=== PATIENT | male | born 1940 | race Caucasian/White ===

== ENCOUNTER → 2023-09-06 11:53 | Outpatient (REF) | payer OTHER, SELFPAY ==
[2023-09-06 13:19] LABS: % Basophils 0.3 % (0-2); % Eosinophils 0.9 % (0-6); % Immature Granulocytes 0.2 % (0-0.5); % Lymphocytes 5.5 % (20.5-51.1); % Monocytes 5.2 % (1.7-9.3); % Neutrophils 87.9 % (42.2-75.2); Absolute Eosinophils 0.1 10^3/uL (0-0.7); Absolute Lymphocytes 0.5 10^3/uL (1.2-3.4); Absolute Monocytes 0.5 10^3/uL (0.1-0.6); Absolute Neutrophils 7.5 10^3/uL (1.4-6.5); Hematocrit 24.7 % (39.0-52.0); Hemoglobin 7.6 g/dL (13.0-18.0); Mean Corp Hgb Conc. 30.8 g/dL (33.0-37.0); Mean Corpuscular Hgb 29.3 pg (27.0-31.0); Mean Corpuscular Volume 95.4 fL (80.0-94.0); Nucleated Red Blood Cells % 0 % (-); Platelet Count 124 10^3/uL (130-400); Red Blood Cell Count 2.59 10^6/uL (4.70-6.10); Red Cell Dist. Width 13.4 % (11.5-14.5); White Blood Cell Count 8.6 10^3/uL (4.8-10.8)
[2023-09-06 13:47] LABS: ALT (SGPT) 61 U/L (0-50); AST (SGOT) 46 U/L (17-59); Albumin 3.1 g/dl (3.5-5.0); Alkaline Phosphatase 202 U/L (38-126); Blood Urea Nitrogen 45 mg/dl (9-20); Calcium 8.5 mg/dl (8.4-10.2); Carbon Dioxide 24 mmol/L (22-30); Chloride 108 mmol/L (98-107); Glucose 350 mg/dl (70-99); Potassium 4.9 mmol/L (3.5-5.1); Sodium 137 mmol/L (135-145); Total Bilirubin 0.5 mg/dl (0.2-1.3); Total Protein 5.3 g/dl (6.3-8.2); eGFR 27.32
== END ==
LOC: OLABP 11:53
PROVIDERS: ATTENDING PHYSICIAN Family Medicine
DX: J81.0 Acute pulmonary edema (principal); N13.2 Hydronephrosis with renal and ureteral calculous obstruction; E87.5 Hyperkalemia; E87.1 Hypo-osmolality and hyponatremia; R60.0 Localized edema; N17.9 Acute kidney failure, unspecified; I48.0 Paroxysmal atrial fibrillation; K21.9 Gastro-esophageal reflux disease without esophagitis; E78.5 Hyperlipidemia, unspecified; I11.0 Hypertensive heart disease with heart failure; E03.9 Hypothyroidism, unspecified; K64.9 Unspecified hemorrhoids; Z85.038 Personal history of other malignant neoplasm of large intestine; E66.9 Obesity, unspecified; R35.89 Other polyuria; E55.9 Vitamin D deficiency, unspecified
CPT/HCPCS: 36415; 80053; 85025

== ENCOUNTER → 2023-09-08 11:12 | Outpatient (REF) | payer OTHER, SELFPAY ==
[2023-09-08 12:04] LABS: % Basophils 0.6 % (0-2); % Eosinophils 2.3 % (0-6); % Immature Granulocytes 0.3 % (0-0.5); % Lymphocytes 8.8 % (20.5-51.1); % Monocytes 7.4 % (1.7-9.3); % Neutrophils 80.6 % (42.2-75.2); Absolute Eosinophils 0.2 10^3/uL (0-0.7); Absolute Lymphocytes 0.6 10^3/uL (1.2-3.4); Absolute Monocytes 0.5 10^3/uL (0.1-0.6); Absolute Neutrophils 5.9 10^3/uL (1.4-6.5); Hematocrit 26.2 % (39.0-52.0); Hemoglobin 7.8 g/dL (13.0-18.0); Mean Corp Hgb Conc. 29.8 g/dL (33.0-37.0); Mean Corpuscular Hgb 28.4 pg (27.0-31.0); Mean Corpuscular Volume 95.3 fL (80.0-94.0); Mean Platelet Volume 11.1 fL (7.4-10.4); Nucleated Red Blood Cells % 0 % (-); Platelet Count 116 10^3/uL (130-400); Red Blood Cell Count 2.75 10^6/uL (4.70-6.10); Red Cell Dist. Width 13.2 % (11.5-14.5); White Blood Cell Count 7.3 10^3/uL (4.8-10.8)
== END ==
LOC: OLABP 11:12
PROVIDERS: ATTENDING PHYSICIAN Family Medicine
DX: I50.9 Heart failure, unspecified (principal); J81.0 Acute pulmonary edema; N13.2 Hydronephrosis with renal and ureteral calculous obstruction; E87.1 Hypo-osmolality and hyponatremia; R60.0 Localized edema; K64.9 Unspecified hemorrhoids; Z85.038 Personal history of other malignant neoplasm of large intestine; E66.9 Obesity, unspecified; I48.0 Paroxysmal atrial fibrillation; K21.9 Gastro-esophageal reflux disease without esophagitis; E78.5 Hyperlipidemia, unspecified; I11.0 Hypertensive heart disease with heart failure; E03.9 Hypothyroidism, unspecified
CPT/HCPCS: 36415; 85025

== ENCOUNTER 2023-09-15 21:13 | Inpatient (IN) | payer OTHER, SELFPAY ==
[2023-09-15 15:10] VITALS: BMI 29.2
--- NOTE | 2023-09-15 15:36 | ED.GENMED ---
History of Present Illness
General
Chief Complaint: Failure to Thrive
Source: patient, records, spouse and family
Exam Limitations: none
Time Seen by Provider: 09/15/23 15:36
Nursing documentation reviewed up to this point in time: agreed with
Travel History
Have you had any contact with someone who has COVID-19?: No
Do you have any symptoms of coronavirus? Fever > 100 degrees, chills, cough, shortness of breath, sore throat, loss of taste or smell, muscle aches, or headache?: No
History of Present Illness
History of Present Illness:
83-year-old male presents emerged from complaining of weakness, altered mental status. Recent discharge after hospital stay at [facility]. He was hospitalized for CHF, hyperkalemia and renal failure. He was found to have liver
metastasis of his colon cancer. His renal failure required dialysis while at [place]. He was discharged on 09/09/2023. He was then sent to [facility] rehab.
Past History
Past History
ED Past Medical History: Arrthythmia (paroxysmal atrial fibrillation), CAD, Cancer (colon, s/p oral chemo), CHF, GERD, HTN, Hypercholesterolemia, IDDM, Hypothyroidism and Other (Kidney stones)
ED Past Surgical History: Cardiac (CABG), Urological and Other (partial colectomy '03)
Social History
Tobacco: Non-smoker
Alcohol: None
Drug: None
Personal:
Living: with family
Employment: Retired
Family History
Family History: Other (Noncontributory)
Review of Systems
Review of Systems
Allergies reviewed?: Yes
All Other Systems: Not applicable
Constitutional: Reports no symptoms
EENT: Reports no symptoms
Respiratory: Reports no symptoms
Cardiac: Reports no symptoms
ABD/GI: Reports no symptoms
: Reports no symptoms
Musculoskeletal: Reports edema
Skin: Reports no symptoms
Neurological: Reports other (Confusion, weakness)
Endocrine: Reports no symptoms
Hematologic/Lymphatic: Reports no symptoms
Psychiatric: Reports no symptoms
Phy Exam
Physical Exam
Physical Exam:
Physical Exam
General: Chronic ill appearance, afebrile
Neck: supple. no meningeal signs. normal posterior pharynx
Heart: s1/s2 regular rate and rhythm, no murmur. equal radial
pulses.
HEENT: Pupils equal round reactive to light, EOMI
Lungs: no acute respiratory distress. clear bilaterally
Abdomen: normal bowel sounds. not tender. no CVAT
Neuro: alert and oriented to person and place. no focal neurological deficits cranial nerves II through XII intact
Skin: no rash
Psychiatric: well kept. interactive and cooperative
Extremities: Bilateral tibial edema. no calf tenderness. negative homans. good distal pulses
Course
Orders/Labs/Results
Orders:
Orders
09/15/23 Dinner
Clear Liquid
At Your Request: Full Participation
09/15/23 15:20
CMP [Comprehensive Metabolic Panel] Urgent
Complete Blood Count/With Diff Urgent
09/15/23 15:49
CT Head W/o Iv Contrast Urgent
Comment:
Reason For Exam: weakness, confusion, altered mental status
09/15/23 15:50
Urinalysis Reflex To Culture Urgent
CR Chest - 2 Views Urgent
Comment:
Reason For Exam: short of breath, chf
09/15/23 15:54
Electrocardiogram (*1) Stat
Reason for Study: Shortness of Breath
Electrocardiogram (*1) Urgent
EKG- Treatment ONCE
09/15/23 16:12
Type+Screen Urgent
09/15/23 18:09
Vital Signs- Treatment ONCE
Frequency: q30m
09/15/23 19:51
NT-proBNP Urgent
Troponin I Urgent
09/15/23 20:06
Admit/Transfer Patient As Directed
Co-Sign Provider:
Level of Care: Inpatient admission
Assign to:: Medical/Surgical
Physician / Group: [facility]/Hospitalist
Diagnosis: Metastatic Colon Cancer
Reason for Hospitalization: Metastatic Colon Cancer
Profound Weakness
Expected length of stay greater than two midnights?: Yes
ELOS- Estimated Length of Stay in days: 4
I certify the patient meets the requirements for IP care: Yes
09/15/23 20:11
Code Status As Directed
Resuscitation Status: Do not resuscitate
Reached after discussion with pt or family/Healthcare POA: Yes
Decision communicated with: son, dgt,
09/15/23 20:12
DNR Bracelet Application ONCE
09/15/23 22:00
Flush (0.9% Sodium Chloride) [Flush (Nss)] See Dose Instructions IV PER PROTOCOL
09/15/23 22:39
Bisacodyl [Dulcolax] 10 mg RECTAL [id number] PRN
Docusate W/Senna [Senokot-S] 1 tablet PO BIDPRN PRN
Morphine Sulfate 1 mg IV Q2HPRN PRN
Polyethylene Glycol Powder [Miralax] 17 grams PO DAILYPRN PRN
09/15/23 22:39
Blood Bank Products [* Blood Bank Products] Routine
Blood Bank Products: *Packed RBC Leuko(PRBC's)
Quantity: 1
Transfuse Today: Yes
Reason: Anemia
Abdomen/Pelvis wo Contrast CT [CT Abd/pelvis Wo Iv Cont] Routine
Comment: no oral or IV contrast
Reason For Exam: colon cancer
Accucheck [Bedside Glucose Monitoring] As Directed
Frequency: Q6H
Activity As Directed
Activity Level: Bedrest
Pneumatic Compression Sleeves As Directed
Type: Knee high
Vital Signs As Directed
Frequency: Per unit guidelines
O2 Therapy [RESP] Routine
Nasal Cannula Liter Flow: 2 LPM
Titrate/Wean O2 to maintain O2 sat greater than (%): 88
DX Deep Vein Thrombosis Video Routine
09/16/23 06:00
Basic Metabolic Panel IN AM
Complete Blood Count/No Diff IN AM
Troponin I IN AM
09/16/23 07:30
Insulin Aspart Corrective Mod [Novolog Flexpen-Moderate Resistance] See Protocol SC AC
09/16/23 08:00
Finasteride [Proscar] 5 mg PO DAILY
NIFEdipine EXTENDED RELEASE [Procardia Xl (Extended Release)] 30 mg PO DAILY
Tamsulosin [Flomax] 0.4 mg PO DAILY
Abnormal Lab Results
09/15/23 09/15/23 09/15/23
15:20 16:12 19:51
RBC 2.64 L 10^6/uL
(4.70-6.10)
Hgb 7.6 L g/dL
(13.0-18.0)
Hct 24.1 L %
(39.0-52.0)
MCHC 31.5 L g/dL
(33.0-37.0)
MPV 11.7 H fL
(7.4-10.4)
Absolute Neuts (auto) 7.4 H 10^3/uL
(1.4-6.5)
Absolute Lymphs (auto) 0.6 L 10^3/uL
(1.2-3.4)
Neutrophils % 84.7 H %
(42.2-75.2)
Lymphocytes % 6.4 L %
(20.5-51.1)
Carbon Dioxide 20 L mmol/L
(22-30)
BUN 57 H mg/dl
(9-20)
Creatinine 2.0 H mg/dL
(0.7-1.3)
Glucose 232 H mg/dl
(70-99)
AST 67 H U/L
(17-59)
ALT 71 H U/L
(0-50)
Alkaline Phosphatase 238 H U/L
(38-126)
Troponin I 1.540 H* ng/ml
Total Protein 5.7 L g/dl
(6.3-8.2)
Albumin 3.2 L g/dl
(3.5-5.0)
Crossmatch IS Only See Detail
09/15/23 15:20
09/15/23 15:20
Vital Signs
Initial and Last Documented VS:
Initial Vital Signs
Temp Pulse Resp Pulse Ox
98.0 F 93 16 96
09/15/23 15:10 09/15/23 15:10 09/15/23 15:10 09/15/23 15:10
Last Documented Vital Signs
Temp Pulse Resp BP Pulse Ox
97.8 F 98 18 125/60 96
09/15/23 23:45 09/15/23 23:45 09/15/23 23:45 09/15/23 23:45 09/15/23 23:18
MDM/Problems Addressed
Differential Diagnosis Includes:
Anemia, CHF exacerbation
MDM/Problems Addressed:
83-year-old male with CHF exacerbation, anemia, troponin elevation, likely type II. Patient denies chest pain. Admit to hospitalist.
Chronic conditions affecting care: CAD
Acute Exacerbation and/or Progression of Chronic Illness: CAD
*Pulse Oximetry
Patient hypoxic: no
*EKG
Interpreted by ED Provider?: Yes
EKG Intrepretation Date: 09/15/23
EKG Intrepretation Time: 16:06
Interpretation: abnormal
Comparison EKG: changes noted
Heart Rate: 89
Rate: normal
Rhythm: sinus
[place]: normal axis
Interval: first degree heart block
QRS Pattern: normal QRS
Ischemia: non-specific ST changes
*Back Digger Operator Interpretation
Rate: normal
Interpretation: normal
Heart Rate: 88
Rhythm: sinus
*Critical Care Note
Total Time (30-74mins, 75-104mins- exclusive of procedures): Not Applicable
Data Reviewed
Review of Other/Old Records Reveals: Labs
Prescriptions/Medications Considered But Not Given:
heparin not indicated as pt takes apixaban
ED Attending Note
-
Portions of this chart may have been created with voice recognition software.� Occasional wrong word or��sound alike� substitutions may have occurred due to the inherent limitations of voice recognition software.
Discharge Plan
Departure
Patient Disposition: Admit
Date of Disposition: 09/15/23
Time of Disposition: 18:09
Admit to: Telemetry
Presentation/result/management discussed w/ accepting MD/DO: Hospitalist
Condition: Fair
Discharge Problem:
Acute exacerbation of CHF (congestive heart failure), Elevated troponin I level, Anemia
Interventions
Interventions:
*Risk Screen - Suicide Last Done: 09/15/23 15:10
*General Assessment Last Done: 09/15/23 15:10
*Neglect/Abuse Screening Last Done: 09/15/23 15:10
ED- Fall Risk Assessment Last Done: 09/15/23 22:51
*ED COVID-19 Vaccine History Last Done: 09/15/23 15:10
*Nursing Disposition Last Done: 09/15/23 22:51
Discharge Date and Time
Discharge Date/Time: 09/15/23 22:51
[2023-09-15 15:42] LABS: % Basophils 0.5 % (0-2); % Immature Granulocytes 0.5 % (0-0.5); % Lymphocytes 6.4 % (20.5-51.1); % Monocytes 6.9 % (1.7-9.3); % Neutrophils 84.7 % (42.2-75.2); Absolute Eosinophils 0.1 10^3/uL (0-0.7); Absolute Lymphocytes 0.6 10^3/uL (1.2-3.4); Absolute Monocytes 0.6 10^3/uL (0.1-0.6); Absolute Neutrophils 7.4 10^3/uL (1.4-6.5); Hematocrit 24.1 % (39.0-52.0); Hemoglobin 7.6 g/dL (13.0-18.0); Mean Corp Hgb Conc. 31.5 g/dL (33.0-37.0); Mean Corpuscular Hgb 28.8 pg (27.0-31.0); Mean Corpuscular Volume 91.3 fL (80.0-94.0); Mean Platelet Volume 11.7 fL (7.4-10.4); Nucleated Red Blood Cells % 0 % (-); Platelet Count 130 10^3/uL (130-400); Red Blood Cell Count 2.64 10^6/uL (4.70-6.10); Red Cell Dist. Width 13.1 % (11.5-14.5); White Blood Cell Count 8.7 10^3/uL (4.8-10.8)
[2023-09-15 16:00] LABS: ALT (SGPT) 71 U/L (0-50); AST (SGOT) 67 U/L (17-59); Albumin 3.2 g/dl (3.5-5.0); Alkaline Phosphatase 238 U/L (38-126); Blood Urea Nitrogen 57 mg/dl (9-20); Calcium 8.7 mg/dl (8.4-10.2); Carbon Dioxide 20 mmol/L (22-30); Chloride 107 mmol/L (98-107); Estimated Creatinine Clearance 27 ml/min; Glucose 232 mg/dl (70-99); Potassium 4.4 mmol/L (3.5-5.1); Sodium 136 mmol/L (135-145); Total Bilirubin 0.5 mg/dl (0.2-1.3); Total Protein 5.7 g/dl (6.3-8.2)
[2023-09-15 18:39] VITALS: BP 121/57
--- NOTE | 2023-09-15 20:16 | W.PN.HOSP.TC ---
Today's Communication/Plan
-
CT scan abd/pelvis
Assessment / Plan
Assessment / Plan
overwhelming weakness
most likely, based on history, tumor burden
Metastatic Colon Cancer
as per dgt, extensive involvement of liver, peritoneal disease. CEA 40
multifactorial anemia
Paroxysmal Atrial Fibrillation
CKD
P:CT scan abd/pelvis
transfuse 1 unit PRBC
potential Oncology consult in AM
Morphine for pain
DNR
see dictated note
Anticipated Discharge: > 48 hours
Subjective/Interval History
-
Date of Service: September 15, 2023
profoundly weak
Objective Data
-
Labs:
Laboratory Results
09/15/23
15:20
WBC 8.7
Hgb 7.6 L
Hct 24.1 L
Plt Count 130
Sodium 136
Potassium 4.4
Chloride 107
Carbon Dioxide 20 L
BUN 57 H
Creatinine 2.0 H
Glucose 232 H
Calcium 8.7
Total Bilirubin 0.5
AST 67 H
ALT 71 H
Alkaline Phosphatase 238 H
Vital Signs:
Vital Signs
Temp Pulse Resp BP Pulse Ox
97.5 F 99 16 121/57 93
09/15/23 18:39 09/15/23 18:39 09/15/23 15:10 09/15/23 18:39 09/15/23 18:39
Review of Systems
-
History Source: Family (dgt and in room, son (ENT physician) on phone)
Constitutional: Denies Fever
EENT: Reports No Symptoms Reported
Respiratory: Denies Trouble Breathing
Cardiac: Denies Chest Pain
Abdomen/GI: Reports No Symptoms
Musculoskeletal: Reports Muscle Weakness
Neuro: Reports Weakness
Physical Exam
-
General: Well Developed, Well Nourished and Appears Chronically Ill
HEENT: Normocephalic, Atraumatic and Moist Mucous Membranes
Respiratory: Clear to Auscultation (on shallow respirations)
Cardiac: Regular Rhythm and S1/S2
GI: Soft, Nontender and Nondistended; Negative Normal Bowel Sounds (hypoactive)
Musculoskeletal: No Clubbing, No Cyanosis and No Edema
Skin: Warm and Dry
Neuro: Awake
[2023-09-15 20:27] LABS: NT-proBNP > 27000 pg/ml
[2023-09-15 23:15] LABS: Glucose - Point of Care 278 mg/dl (70-99)
[2023-09-15 23:18] VITALS: BP 124/63; BMI 28.1
[2023-09-15 23:45] VITALS: BP 125/60
--- NOTE | 2023-09-15 23:56 | PTCARENOTE ---
Addendum entered by Ismael Cardenas RN 09/16/23 03:08:
1 unit of RBC was transfused and tolerated. Pt has been confused and wants to leave, having a hard time to understand why he is in the hospital. Medsiter monitor was placed for safety.
Original Note:
Pt admitted to . VSS, afebrile, AAOx1, confused, forgetful, flat affect and withdraw. Irregular HR sounds. +1 BLLE edema. Lung sounds are diminished at the bases, shallow breathing, SaO2 95% RA. Abd round. Incontinence of urine and bowel. #25
condom cath placed. Bed alarm placed. pt appear comfortable in bed and call gonzáles within reach.
[2023-09-16 00:05] VITALS: BP 127/60
[2023-09-16] MEDS: MORPHINE SULFATE 1 MG IV ×6 (01:46→21:31)
[2023-09-16 03:07] VITALS: BP 121/64
[2023-09-16 04:00] VITALS: BMI 28.0
[2023-09-16 04:43] LABS: Urine Albumin 2+ (Neg - Trace); Urine Bilirubin 1+ (Negative); Urine Color Brown; Urine Glucose 1+ (Negative); Urine Ketone Trace (Negative); Urine Leukocyte 1+ (Negative); Urine Nitrite Negative (Negative); Urine Occult Blood 4+ (Negative); Urine Urobilinogen Negative (Neg - 1+)
[2023-09-16 04:45] LABS: Urine Character Cloudy (Clear)
[2023-09-16 05:22] LABS: Urine Amorphous Seen; Urine Red Blood Cell >100 /HPF (0-2); Urine Squamous Cell >30 /LPF (Few)
[2023-09-16 05:27] LABS: Urine Bacteria Many (Negative)
[2023-09-16 06:28] LABS: Hematocrit 28.4 % (39.0-52.0); Hemoglobin 9.1 g/dL (13.0-18.0); Mean Corpuscular Volume 90.4 fL (80.0-94.0); Mean Platelet Volume 11.4 fL (7.4-10.4); Platelet Count 133 10^3/uL (130-400); Red Blood Cell Count 3.14 10^6/uL (4.70-6.10); Red Cell Dist. Width 13.1 % (11.5-14.5); White Blood Cell Count 8.9 10^3/uL (4.8-10.8)
[2023-09-16 06:55] LABS: Blood Urea Nitrogen 60 mg/dl (9-20); Calcium 8.7 mg/dl (8.4-10.2); Carbon Dioxide 16 mmol/L (22-30); Chloride 107 mmol/L (98-107); Estimated Creatinine Clearance 24 ml/min; Glucose 290 mg/dl (70-99); Sodium 135 mmol/L (135-145); eGFR 27.32
[2023-09-16 07:32] LABS: Glucose - Point of Care 316 mg/dl (70-99)
[2023-09-16 07:42] VITALS: BMI 28.0
[2023-09-16 07:57] VITALS: BP 117/64
[2023-09-16] MEDS: NOVOLOG FLEXPEN-MODERATE RESISTANCE 7 UNITS SC ×2 (09:15→12:20)
[2023-09-16] MEDS: FLOMAX 0.400000000000000022 MG PO (09:16)
[2023-09-16] MEDS: PROTONIX IV 40 MG IV (09:17)
[2023-09-16] MEDS: NSS (PRESERVATIVE FREE) 10 ML IV (09:17)
[2023-09-16] MEDS: PROSCAR 5 MG PO (09:18)
[2023-09-16] MEDS: PROCARDIA XL (EXTENDED RELEASE) 30 MG PO (09:18)
[2023-09-16 11:39] LABS: Glucose - Point of Care 310 mg/dl (70-99)
--- NOTE | 2023-09-16 12:44 | W.PN.HOSP.TC ---
Addendum entered and electronically signed by Anthony Live MD 09/16/23 12:58:
glu remains elevated, will resume long acting insulin, even though pt not eating, will resume at low amount
Original Note:
Today's Communication/Plan
-
IVF
Oncology consult
Assessment / Plan
Assessment / Plan
overwhelming weakness
most likely, based on history, tumor burden
Metastatic Colon Cancer
as per dgt, extensive involvement of liver, peritoneal disease. CEA [address] scan of abd and pelvis: 1).Evaluation for malignancy/metastasis is limited by the lack of intravenous and oral contrast
2). There are greater than 20 hepatic metastasis measuring up to 2 cm
3). There is a small volume perihepatic ascites and small volume ascites in both paracolic gutters.
4). There are bilateral nonobstructing renal calculi and left double-J ureteral stent
5). There is distal sigmoid anastomosis
6). There are small-moderate bilateral pleural effusions with associated compressive atelectasis at both lung bases
multifactorial anemia
transfused 1 unit, Hgb 7.6-->9.1
Paroxysmal Atrial Fibrillation
as on Eliquis, which has been stopped
CKD
baseline Creat in 01/2020 was 0.7, while at [place] was 4. Received 3 dialysis sessions, Creat dropping into the 2's when dc to [place]. Pt is apparently at his new baseline.
Anorexia
most likely tumor related. By my read, significant bowel distention consistent with diffuse bowel involvement of cancer
P: will start IVF
situation reviewed with family (son, dgt, at bedside) - extensive review of situation, reviewed CT images with dgt, JING Mcfarlane. They would like oncologist input prior to making decision on Palliative Care vs attempted treatment
DNR
Anticipated Discharge: > 48 hours
Subjective/Interval History
-
Date of Service: September 16, 2023
Remains very weak, but slightly more alert this morning compared to time of admission
Objective Data
-
Labs:
Laboratory Results
09/16/23
06:03
WBC 8.9
Hgb 9.1 L
Hct 28.4 L
Plt Count 133
Sodium 135
Potassium 5.0
Chloride 107
Carbon Dioxide 16 L
BUN 60 H
Creatinine 2.3 H
Glucose 290 H
Calcium 8.7
Vital Signs:
Vital Signs
Temp Pulse Resp BP Pulse Ox
97.7 F 92 18 117/64 96
09/16/23 07:57 09/16/23 09:18 09/16/23 07:57 09/16/23 09:18 09/16/23 08:00
I&O
09/15/23 09/16/23 09/17/23
06:59 06:59 06:59
Intake Total 670 / 670
Output Total 150 / 150
Balance 520 / 520
Review of Systems
-
History Source: Family (dgt Maeve, son Calvin and in room)
Constitutional: Denies Fever
EENT: Reports No Symptoms Reported
Respiratory: Denies Trouble Breathing
Cardiac: Denies Chest Pain
Abdomen/GI: Reports No Symptoms
Musculoskeletal: Reports Muscle Weakness
Neuro: Reports Weakness
Physical Exam
-
General: Well Developed, Well Nourished and Appears Chronically Ill
HEENT: Normocephalic, Atraumatic and Moist Mucous Membranes
Respiratory: Clear to Auscultation (on shallow respirations) and Decreased Breath Sounds (noted at both bases)
Cardiac: Regular Rhythm and S1/S2
GI: Soft, Nontender and Nondistended; Negative Normal Bowel Sounds (hypoactive)
Musculoskeletal: No Clubbing, No Cyanosis and No Edema
Skin: Warm and Dry
Neuro: Awake
--- NOTE | 2023-09-16 12:48 | CM ---
Reviewed the chart notes and spoke with the patient's spouse and daughter at the bedside. The patient was recently at [facility] for a week post hospitalization from [facility] and discharged to home with Alexia MOSLEY. The patient's family have been caring
for the patient since discharge, but now the family feels that the patient needs exceed their capabilities to care for the patient. The patient resides with his spouse in a two story home with one step to enter. The mast bedroom is on the first
level. The patient has a rolling walker, but is now not able to walk. [facility] CM continues to be available to patient/family and is monitoring medical plan for needs at discharge.
Plan: Discharge plans will depend on the patient's progress.
[2023-09-16] MEDS: 0.45%NACL 1000 IV ×2 (13:12→21:30)
--- NOTE | 2023-09-16 14:16 | CON.ONC ---
Impression
Impression
83 Yo M with recurrent extensive metastatic colorectal cancer presents to the hospital with extreme fatigue and weakness.
1. Weakness
2. Subacute infarcts on head CT scan
3. Extensive metastatic Colon carcinoma - liver and peritoneal Metastasis
4. Anemia, possibly multifactorial.
5. SHERMAN on CKD
Plan
Plan
Sees Oncologist Dr. Hoff at [place]. Agree with his primary oncologist that patient is not a candidate for systemic chemotherapy. Given his co- morbid conditions, chemotherapy is potentially harmful than beneficial. Family is concerned about
rapid decline in his status within the last one week. Family considers some treatment in anticipation of patient getting better. Patient is Hospice eligible.
Patient History
History of Present Illness
83 Yo M presents to the hospital with extreme weakness, and fatigue for the last 2-3 days, that progressively worsened with new onset confusion yesterday. Patient has a h/o of colorectal cancer s/p bowel resection and chemotherapy in 2017, CEA at
2.5 in remission. He was independent and ambulatory until the most recent hospital visit to [place], where he was treated for acute CHF, Anemia, Atrial Fibrillation and SHERMAN(sr.Cr- 4.0)that required 3 dialysis cycles over a period of 18 days and was
discharged to [facility] for Rehab. During this admission, he had an abdominal CT scan and found to have extensive metastatic disease that spread to peritoneum, retroperitoneum and liver. Patient has established with oncologist at [place],
Luis Eduardo. His previous cancer was treated by the same group, Dr. Mota. The initial goal was to gain the strength back before starting chemotherapy. He was discharged from [facility] on September 09(last Tuesday) and ambulating well in the home with the
help of a walker until 2-3 days ago. (history obtained from mother and step daughter on bed side).
Daughter also reports bowel and bladder incontinence over the last 2-3 days.
Past-Medical/Surgical History
PMHx: Arrthythmia (paroxysmal atrial fibrillation), CAD, Cancer (colon, s/p oral chemo), CHF, GERD, HTN, Hypercholesterolemia, IDDM, Hypothyroidism and Other (Kidney stones)
PSHx: Cardiac (CABG), Urological and Other (partial colectomy '03)
Patient Medication
�Medication �Instructions �Recorded �Confirmed �Last Taken �Type
omega-3 fatty acids-fish oil 300 1 ea PO DAILY Supplement 05/12/10 09/15/23 09/15/23 History
mg-1,000 mg capsule
rosuvastatin 5 mg tablet 5 mg PO HS High cholesterol 05/12/10 09/15/23 09/14/23 History
aspirin 81 mg tablet,delayed 81 mg PO DAILY Blood clot 02/05/20 09/15/23 09/15/23 Rx
release prevention/tx ##0
apixaban 2.5 mg tablet 2.5 mg PO BID 09/15/23 09/15/23 09/15/23 History
cholecalciferol (vitamin D3) 25 25 mcg PO DAILY 09/15/23 09/15/23 09/15/23 History
mcg (1,000 unit) tablet (Vitamin
D3)
finasteride 5 mg tablet 5 mg PO DAILY 09/15/23 09/15/23 09/15/23 History
furosemide 40 mg tablet 40 mg PO DAILY 09/15/23 09/15/23 09/15/23 History
insulin detemir U-100 100 unit/mL 15 unit SC HS 09/15/23 09/15/23 4 Days Ago History
(3 mL) subcutaneous pen (Levemir ~09/11/23
FlexPen)
insulin lispro 100 unit/mL 5 unit SC MEALS 09/15/23 09/15/23 Unknown History
subcutaneous pen (Humalog KwikPen
(U-100) Insulin)
multivitamin 1 tab PO DAILY 09/15/23 09/15/23 09/15/23 History
nifedipine 30 mg tablet,extended 30 mg PO DAILY 09/15/23 09/15/23 09/15/23 History
release 24 hr
repaglinide 2 mg tablet 2 mg PO AC 09/15/23 09/15/23 09/15/23 History
tamsulosin 0.4 mg capsule 0.4 mg PO DAILY 09/15/23 09/15/23 09/15/23 History
vitamin B complex-folic acid 0.4 1 tab PO DAILY 09/15/23 09/15/23 09/15/23 History
mg tablet (B Complex 1 (with folic
acid))
Active Medications
Generic Name Dose Route Start Last Admin
Trade Name Freq PRN Reason Stop Dose Admin
Bisacodyl 10 mg 09/15/23 22:39
Bisacodyl 10 Mg Rectal Suppository RECTAL 10/13/23 22:38
[id number] PRN
constipation
Dextrose 12.5 grams 09/15/23 23:00
Dextrose 50% (0.5 Grams/Ml) 50 Ml Syringe IV 10/13/23 22:59
[id number] PRN
hypoglycemia
Protocol
Finasteride 5 mg 09/16/23 08:00 09/16/23 09:18
Finasteride 5 Mg Tablet PO 10/14/23 07:59 5 mg
DAILY ALEX Administration
Glucagon 1 mg 09/15/23 23:00
Glucagon 1 Mg Vial IM 10/13/23 22:59
PRN PRN
hypoglycemia - no IV access
Protocol
Insulin Glargine 10 units/ 0.1 mls @ 0 mls/hr 09/16/23 22:00
Device SC 10/14/23 21:59
HS ALEX
As Directed
Sodium Chloride 1,000 mls @ 60 mls/hr 09/16/23 13:00 09/16/23 13:12
0.45%Nacl IV 1,000 mls
.[id number] ALEX Administration
Insulin Aspart 0 units 09/16/23 07:30 09/16/23 12:20
Insulin Aspart Moderate Resistance 300 Units/3 Ml Pen.Injctr SC 10/14/23 07:29 7 units
AC ALEX Administration
Protocol
Morphine Sulfate 1 mg 09/15/23 22:39 09/16/23 13:11
Morphine 2 Mg/Ml Syringe IV 09/29/23 22:38 1 mg
Q2HPRN PRN Administration
pain/distress
Nifedipine 30 mg 09/16/23 08:00 09/16/23 09:18
Nifedipine 30 Mg Extended Release Tablet PO 10/14/23 07:59 30 mg
DAILY ALEX Administration
Pantoprazole Sodium 40 mg 09/16/23 08:00 09/16/23 09:17
Protonix 40 Mg Iv Push IV 10/14/23 07:59 40 mg
DAILY ALEX Administration
Polyethylene Glycol 17 grams 09/15/23 22:39
Polyethylene Glycol Powder 17 Grams Packet PO 10/13/23 22:38
DAILYPRN PRN
constipation
Senna/Docusate Sodium 1 tablet 09/15/23 22:39
Docusate W/Senna (Theodora-Colace) Tablet PO 10/13/23 22:38
BIDPRN PRN
constipation
Sodium Chloride 0 flush 09/15/23 22:00
Sodium Chloride 0.9% (Flush) Syringe IV 10/13/23 21:59
PER PROTOCOL ALEX
Sodium Chloride 10 ml 09/16/23 08:00 09/16/23 09:17
Sodium Chloride 0.9% (Preservative Free) 10 Ml Vial IV 10/14/23 07:59 10 ml
DAILY ALEX Administration
Tamsulosin HCl 0.4 mg 09/16/23 08:00 09/16/23 09:16
Tamsulosin 0.4 Mg Capsule PO 10/14/23 07:59 0.4 mg
DAILY ALEX Administration
Review of Systems
-
Unable to obtain full review of systems at this time due to: Other (patient is confused)
History Source: Family
Constitutional: Reports No Appetite, Fatigue and Weakness
Respiratory: Reports No Symptoms
Cardiac: Reports No Symptoms
GI: Reports Other (soft stools with incontinence.)
: Reports Incontinence and Dark Urine
Skin: Reports No Symptoms
Neuro: Reports No Symptoms
Endocrine: Reports No Symptoms
Hematologic/Lymphatic: Reports Bruising (No bruising or blood clots)
Allergy / Immunology: Reports No Symptoms
Psych: Reports No Symptoms
Physical Exam
-
General: Appears Chronically Ill
HEENT: Moist Mucous Membranes
Cardiology: Normal Sinus Rhythm, S1 and S2
Pulmonary: Clear and Other (shallow breathing)
GI: Soft, Normal Bowel Sounds and Other (non distended)
Genito-Urinary: Costovertebral Angle Tenderness, Turbid Urine and [place]
Musculoskeletal: No Clubbing, No Cyanosis and No Edema
Neurology: No Lateralizing Symptoms and Other (not oriented to time, person and place.)
Hematologic / Lymphatic: No Lymphadenopathy and No Petechiae
Psych: Confused
Labs
Lab Results
WBC 8.9 10^3/uL (4.8-10.8) 09/16/23 06:03
RBC 3.14 10^6/uL (4.70-6.10) L 09/16/23 06:03
Hgb 9.1 g/dL (13.0-18.0) L 09/16/23 06:03
Hct 28.4 % (39.0-52.0) L 09/16/23 06:03
MCV 90.4 fL (80.0-94.0) 09/16/23 06:03
MCH 29.0 pg (27.0-31.0) 09/16/23 06:03
MCHC 32.0 g/dL (33.0-37.0) L 09/16/23 06:03
RDW 13.1 % (11.5-14.5) 09/16/23 06:03
Plt Count 133 10^3/uL (130-400) 09/16/23 06:03
MPV 11.4 fL (7.4-10.4) H 09/16/23 06:03
Abs Immat Gran (auto) 0.0 10^3/uL (0-0.05) 09/15/23 15:20
Absolute Neuts (auto) 7.4 10^3/uL (1.4-6.5) H 09/15/23 15:20
Absolute Lymphs (auto) 0.6 10^3/uL (1.2-3.4) L 09/15/23 15:20
Absolute Monos (auto) 0.6 10^3/uL (0.1-0.6) 09/15/23 15:20
Absolute Eos (auto) 0.1 10^3/uL (0-0.7) 09/15/23 15:20
Absolute Basos (auto) 0.0 10^3/uL (0-0.2) 09/15/23 15:20
Immature Gran % 0.5 % (0-0.5) 09/15/23 15:20
Neutrophils % 84.7 % (42.2-75.2) H 09/15/23 15:20
Lymphocytes % 6.4 % (20.5-51.1) L 09/15/23 15:20
Monocytes % 6.9 % (1.7-9.3) 09/15/23 15:20
Eosinophils % 1.0 % (0-6) 09/15/23 15:20
Basophils % 0.5 % (0-2) 09/15/23 15:20
Creatinine 2.3 mg/dL (0.7-1.3) H 09/16/23 06:03
Vital Signs
Vital Signs
Temp Pulse Resp BP Pulse Ox
98.2 F 92 18 117/64 97
09/16/23 13:52 09/16/23 09:18 09/16/23 07:57 09/16/23 09:18 09/16/23 13:52
[2023-09-16 15:32] VITALS: BP 119/62
[2023-09-16 16:17] LABS: Glucose - Point of Care 259 mg/dl (70-99)
[2023-09-16] MEDS: NOVOLOG FLEXPEN-MODERATE RESISTANCE 5 UNITS SC (17:08)
[2023-09-16] MEDS: LANTUS 0.100000000000000006 UNITS SC (21:29)
[2023-09-16 22:56] LABS: Glucose - Point of Care 294 mg/dl (70-99)
[2023-09-16 23:52] VITALS: BP 117/60
[2023-09-17] MEDS: MORPHINE SULFATE 2 MG IV ×5 (03:10→18:38)
[2023-09-17 04:48] VITALS: BMI 28.0
[2023-09-17 05:25] LABS: % Basophils 0.2 % (0-2); % Eosinophils 0.6 % (0-6); % Immature Granulocytes 0.6 % (0-0.5); % Lymphocytes 6.7 % (20.5-51.1); % Monocytes 6.7 % (1.7-9.3); % Neutrophils 85.2 % (42.2-75.2); Absolute Eosinophils 0.1 10^3/uL (0-0.7); Absolute Immature Granulocytes 0.1 10^3/uL (0-0.05); Absolute Lymphocytes 0.6 10^3/uL (1.2-3.4); Absolute Monocytes 0.6 10^3/uL (0.1-0.6); Absolute Neutrophils 7.7 10^3/uL (1.4-6.5); Hematocrit 29.2 % (39.0-52.0); Hemoglobin 9.2 g/dL (13.0-18.0); Mean Corp Hgb Conc. 31.5 g/dL (33.0-37.0); Mean Corpuscular Hgb 28.4 pg (27.0-31.0); Mean Corpuscular Volume 90.1 fL (80.0-94.0); Mean Platelet Volume 11.3 fL (7.4-10.4); Nucleated Red Blood Cells % 0 % (-); Platelet Count 113 10^3/uL (130-400); Red Blood Cell Count 3.24 10^6/uL (4.70-6.10); Red Cell Dist. Width 13.2 % (11.5-14.5); Reticulocyte Count 1.4 % (0.4-2.8)
[2023-09-17 05:46] LABS: Blood Urea Nitrogen 70 mg/dl (9-20); Calcium 8.7 mg/dl (8.4-10.2); Carbon Dioxide 17 mmol/L (22-30); Chloride 108 mmol/L (98-107); Estimated Creatinine Clearance 22 ml/min; Glucose 287 mg/dl (70-99); Iron 29 ug/dl (49-181); Potassium 4.8 mmol/L (3.5-5.1); Sodium 137 mmol/L (135-145); eGFR 24.72
[2023-09-17 05:55] LABS: Percent Saturation 11 % (20-50); Total Iron Binding Capacity 256 ug/dl (261-462)
[2023-09-17 05:58] VITALS: BMI 28.2
[2023-09-17 07:00] VITALS: BP 107/93
[2023-09-17 07:21] LABS: Glucose - Point of Care 315 mg/dl (70-99)
[2023-09-17] MEDS: NOVOLOG FLEXPEN-MODERATE RESISTANCE 7 UNITS SC (08:27)
[2023-09-17] MEDS: FLOMAX 0.400000000000000022 MG PO (09:01)
[2023-09-17] MEDS: NSS (PRESERVATIVE FREE) 10 ML IV (09:01)
[2023-09-17] MEDS: PROTONIX IV 40 MG IV (09:02)
[2023-09-17] MEDS: STERILE WATER FOR INJECTION 10 ML IV (09:02)
[2023-09-17] MEDS: ROCEPHIN 1000 MG IV (09:02)
[2023-09-17] MEDS: PROSCAR 5 MG PO (09:03)
[2023-09-17] MEDS: PROCARDIA XL (EXTENDED RELEASE) PO (09:03)
[2023-09-17] MEDS: NOVOLOG FLEXPEN-MODERATE RESISTANCE SC ×2 (12:52→17:12)
--- NOTE | 2023-09-17 13:56 | W.PN.HOSP.TC ---
Today's Communication/Plan
-
await family decision as to possible palliative care
Assessment / Plan
Assessment / Plan
overwhelming weakness, now with diffuse pains.
most likely, based on history, tumor burden
Input of Oncology appreciated
Metastatic Colon Cancer
as per dgt, extensive involvement of liver, peritoneal disease. CEA [address] scan of abd and pelvis: 1).Evaluation for malignancy/metastasis is limited by the lack of intravenous and oral contrast
2). There are greater than 20 hepatic metastasis measuring up to 2 cm
3). There is a small volume perihepatic ascites and small volume ascites in both paracolic gutters.
4). There are bilateral nonobstructing renal calculi and left double-J ureteral stent
5). There is distal sigmoid anastomosis
6). There are small-moderate bilateral pleural effusions with associated compressive atelectasis at both lung bases
multifactorial anemia
transfused 1 unit, Hgb 7.6-->9.1-->9.2
UTI
many bact, RBC. Urine micro showed no growth, but will continue IV abx for now
Paroxysmal Atrial Fibrillation
was on Eliquis, which has been stopped
CKD
baseline Creat in 01/2020 was 0.7, while at [place] was 4. Received 3 dialysis sessions, Creat dropping into the 2's when dc to [facility]. Pt is apparently at his new baseline.
Anorexia
most likely tumor related. By my read, significant bowel distention consistent with diffuse bowel involvement of cancer
P: will continue IVF
situation reviewed with family (dgt, at bedside) - extensive review of situation, reviewed CT images with dgt, JING Mcfarlane. Input of oncologist appreciated. Pt started with diffuse pains, most likely related to cancer. Discuss starting
palliative care and family is considering
with obvious pain, will slowly increase Morphine dosing, plan to start drip if transitions to palliative care
DNR
Anticipated Discharge: > 48 hours
Subjective/Interval History
-
Date of Service: September 17, 2023
When seen by me on first visit he appeared comfortable, on revisit when family arrived, continued to be comfortable. Called back to see pt due to obvious distress, obvious pain by nurse. Given extra 2 mg MSO4, then had to repeat
Objective Data
-
Labs:
Laboratory Results
09/17/23
04:59
WBC 9.0
Hgb 9.2 L
Hct 29.2 L
Plt Count 113 L
Sodium 137
Potassium 4.8
Chloride 108 H
Carbon Dioxide 17 L
BUN 70 H
Creatinine 2.5 H
Glucose 287 H
Calcium 8.7
Vital Signs:
Vital Signs
Temp Pulse Resp BP Pulse Ox
98.5 F 97 16 107/93 94
09/17/23 07:00 09/17/23 09:03 09/17/23 07:00 09/17/23 09:03 09/17/23 07:30
I&O
09/16/23 09/17/23 09/18/23
06:59 06:59 06:59
Intake Total 670 / 670 660 / 660
Output Total 150 / 150 500 / 500
Balance 520 / 520 160 / 160
Review of Systems
-
History Source: Family (dgt Maeve and in room)
Constitutional: Denies Fever
EENT: Reports No Symptoms Reported
Respiratory: Denies Trouble Breathing
Cardiac: Denies Chest Pain
Abdomen/GI: Reports No Symptoms
Musculoskeletal: Reports Muscle Weakness
Neuro: Reports Weakness
Physical Exam
-
General: Well Developed, Well Nourished, Appears in Distress (diffuse pains on later visit, unable to localize) and Appears Chronically Ill
HEENT: Normocephalic, Atraumatic and Moist Mucous Membranes
Respiratory: Clear to Auscultation (on shallow respirations) and Decreased Breath Sounds (noted at both bases)
Cardiac: Regular Rhythm and S1/S2
GI: Soft, Nontender and Nondistended; Negative Normal Bowel Sounds (hypoactive)
Musculoskeletal: No Clubbing, No Cyanosis and No Edema
Skin: Warm and Dry
Neuro: Awake
[2023-09-17 16:25] LABS: Folate > 20.0 ng/ml (2.76-20); Vitamin B12 > 1000 pg/ml (239-931)
[2023-09-17 17:11] LABS: Glucose - Point of Care 190 mg/dl (70-99)
[2023-09-17 21:28] LABS: Glucose - Point of Care 206 mg/dl (70-99)
[2023-09-17] MEDS: LANTUS 0.100000000000000006 UNITS SC (23:20)
[2023-09-17 23:23] LABS: Glucose - Point of Care 160 mg/dl (70-99)
[2023-09-17 23:50] VITALS: BP 117/60
[2023-09-18] MEDS: MORPHINE SULFATE 2 MG IV ×9 (01:11→18:43)
[2023-09-18 07:07] VITALS: BP 134/63
[2023-09-18 07:20] LABS: Glucose - Point of Care 97 mg/dl (70-99)
[2023-09-18 08:30] VITALS: BMI 28.2
[2023-09-18] MEDS: NOVOLOG FLEXPEN-MODERATE RESISTANCE SC ×2 (08:47→11:36)
[2023-09-18] MEDS: FLOMAX 0.400000000000000022 MG PO (08:51)
[2023-09-18] MEDS: PROSCAR 5 MG PO (08:51)
[2023-09-18] MEDS: PROCARDIA XL (EXTENDED RELEASE) 30 MG PO (08:51)
[2023-09-18] MEDS: STERILE WATER FOR INJECTION 10 ML IV (08:52)
[2023-09-18] MEDS: ROCEPHIN 1000 MG IV (08:52)
[2023-09-18] MEDS: PROTONIX IV 40 MG IV (08:52)
[2023-09-18] MEDS: NSS (PRESERVATIVE FREE) 10 ML IV (08:52)
[2023-09-18 11:38] LABS: Glucose - Point of Care 125 mg/dl (70-99)
--- NOTE | 2023-09-18 15:56 | W.PN.HOSP.TC ---
Addendum entered and electronically signed by Anthony Live MD 09/18/23 16:10:
pharmacy will place Morphine drip orders
stop non-palliative meds
Case Management for Hospice consult
Original Note:
Today's Communication/Plan
-
Comfort Care
Assessment / Plan
Assessment / Plan
overwhelming weakness, now with diffuse pains.
most likely, based on history, tumor burden. Pt is obviously terminal and family requesting transition to Comfort Care and then to Hospice
Input of Oncology appreciated
Metastatic Colon Cancer
as per dgt, extensive involvement of liver, peritoneal disease. CEA [address] scan of abd and pelvis: 1).Evaluation for malignancy/metastasis is limited by the lack of intravenous and oral contrast
2). There are greater than 20 hepatic metastasis measuring up to 2 cm
3). There is a small volume perihepatic ascites and small volume ascites in both paracolic gutters.
4). There are bilateral nonobstructing renal calculi and left double-J ureteral stent
5). There is distal sigmoid anastomosis
6). There are small-moderate bilateral pleural effusions with associated compressive atelectasis at both lung bases
multifactorial anemia
transfused 1 unit, Hgb 7.6-->9.1-->9.2
UTI
many bact, RBC. Urine C&S showed no growth, will stop abx as going on Comfort
Paroxysmal Atrial Fibrillation
was on Eliquis, which has been stopped
CKD
baseline Creat in 01/2020 was 0.7, while at [place] was 4. Received 3 dialysis sessions, Creat dropping into the 2's when dc to [facility]. Pt is apparently at his new baseline.
Anorexia
most likely tumor related. By my read, significant bowel distention consistent with diffuse bowel involvement of cancer
P: will stop IVF
situation reviewed with family (dgt, at bedside) - extensive review of situation, reviewed CT images with dgt, JING Mcfarlane. Input of oncologist appreciated. Pt started with diffuse pains, most likely related to cancer. Discuss starting
palliative care and family is considering
with obvious pain, will transition to drip on Comfort Care
extensive meeting with family, shown CT scan, labs. Long discussion
DNR
Anticipated Discharge: > 48 hours
Subjective/Interval History
-
Date of Service: September 18, 2023
Met with family. Decision made that they would like him on Comfort Care to transition to Hospice. Nurse made aware, will place orders
Objective Data
-
Vital Signs:
Vital Signs
Temp Pulse Resp BP Pulse Ox
98.0 F 98 14 134/63 99
09/18/23 07:07 09/18/23 08:51 09/18/23 07:07 09/18/23 08:51 09/18/23 07:07
I&O
09/17/23 09/18/23 09/19/23
06:59 06:59 06:59
Intake Total 660 / 660 360 / 360
Output Total 500 / 500 250 / 250
Balance 160 / 160 110 / 110
Review of Systems
-
History Source: Family (philiphuang Mcfarlane, 2 sons and in room. Discussed out of room in conference area)
Constitutional: Denies Fever
EENT: Reports No Symptoms Reported
Respiratory: Denies Trouble Breathing
Cardiac: Denies Chest Pain
Abdomen/GI: Reports Abdominal Pain; Denies Nausea or Vomiting
Genitourinary: Reports Other (condom cath in place)
Musculoskeletal: Reports Muscle Weakness
Neuro: Reports Weakness
Physical Exam
-
General: Well Developed, Well Nourished, Appears in Distress (noted earlier by valentin, currently not in distress) and Appears Chronically Ill
HEENT: Normocephalic, Atraumatic and Moist Mucous Membranes
Respiratory: Clear to Auscultation (on shallow respirations) and Decreased Breath Sounds (noted at both bases)
Cardiac: Regular Rhythm and S1/S2
GI: Soft, Nontender and Nondistended; Negative Normal Bowel Sounds (hypoactive)
Musculoskeletal: No Clubbing, No Cyanosis and No Edema
Skin: Warm and Dry
Neuro: Negative Awake or Alert
[2023-09-18] MEDS: MORPHINE 100 IV (16:59)
--- NOTE | 2023-09-18 19:30 | PTCARENOTE ---
Decision was made by family today and made patient comfort, as Morphine was initiated around 1700 on step 1. Breakthrough pain was given Q20mns due to irregular/grunting/agonal breathing. Last med given around 1843. When RN went back to room at 1906
to reassess patient, RN was approached by family at the door to make aware that patient had just . Patient found with no audible breath sounds on auscultation and no heart tone. IV Morphine drip stopped and ANIMATION CAMERA OPERATOR notified to pronounce patient.
Emotional support provided to patient.
--- NOTE | 2023-09-18 19:37 | W.PN.DEATH ---
Pronouncement of
-
Called to see patient to pronounce.
No spontaneous heart tones or respirations noted.
Patient not responsive to verbal stimuli.
Patient is pronounced .
Time of : 19:06
Date of : 09/18/23
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
occipital lobe.
Family Notified: Yes
--- NOTE | 2023-09-18 20:42 | PTCARENOTE ---
Gift of life called.
[2023-09-18 23:54] LABS: Free Kappa Light Chains,Quant 79.55 mg/L (3.30-19.40); Free Lambda Light Chains,Quant 54.95 mg/L (5.71-26.30); Kappa/Lambda Fr Light Ratio 1.45 (0.26-1.65)
[2023-09-20 20:27] LABS: Albumin 2.99 g/dL (3.75-5.01); Alpha 1 Globulin 0.49 g/dL (0.19-0.46); Alpha 2 Globulin 0.92 g/dL (0.48-1.05); SPEP IFE Reflex Not Done; Total Protein-Electrophoresis 5.8 g/dL (6.3-8.2)
== END 2023-09-18 23:05 | disposition expired | DRG 374 ==
LOC: 2 NORTH 21:13
PROVIDERS: Emergency Medicine; ADMITTING PHYSICIAN Internal Medicine; CONSULT PHYSICIAN Internal Medicine Hematology & Oncology; EMERGENCY PHYSICIAN Emergency Medicine
PROC: 30233N1 Transfusion of Nonautologous Red Blood Cells into Peripheral Vein, Percutaneous Approach (ICD-10-PCS; 2023-09-15)
DX: C19 Malignant neoplasm of rectosigmoid junction (principal); I63.9 Cerebral infarction, unspecified; I13.0 Hypertensive heart and chronic kidney disease with heart failure and stage 1 through stage 4 chronic kidney disease, or unspecified chronic kidney disease; C78.7 Secondary malignant neoplasm of liver and intrahepatic bile duct; C78.6 Secondary malignant neoplasm of retroperitoneum and peritoneum; N17.9 Acute kidney failure, unspecified; N39.0 Urinary tract infection, site not specified; R18.8 Other ascites; R62.7 Adult failure to thrive; Z51.5 Encounter for palliative care; N18.9 Chronic kidney disease, unspecified; E87.5 Hyperkalemia; E03.9 Hypothyroidism, unspecified; E11.22 Type 2 diabetes mellitus with diabetic chronic kidney disease; I44.0 Atrioventricular block, first degree; E78.00 Pure hypercholesterolemia, unspecified; I25.10 Atherosclerotic heart disease of native coronary artery without angina pectoris; I48.0 Paroxysmal atrial fibrillation; I50.9 Heart failure, unspecified; D63.8 Anemia in other chronic diseases classified elsewhere; E11.649 Type 2 diabetes mellitus with hypoglycemia without coma; K21.9 Gastro-esophageal reflux disease without esophagitis; Z66 Do not resuscitate; Z92.21 Personal history of antineoplastic chemotherapy; Z90.49 Acquired absence of other specified parts of digestive tract; Z79.01 Long term (current) use of anticoagulants; Z87.442 Personal history of urinary calculi; Z95.1 Presence of aortocoronary bypass graft; Z79.82 Long term (current) use of aspirin; Z79.4 Long term (current) use of insulin; Z79.84 Long term (current) use of oral hypoglycemic drugs
CPT/HCPCS: 70450; 71046; 74176; 80048; 80053; 81003; 81015; 82607; 82728; 82746; 82962; 83521; 83540; 83550; 83880; 84155; 84165; 84484; 85025; 85027; 85045; 86850; 86900; 86901; 86920; 87086; 93005; 99285; P9016